=== PATIENT | female | born 1940 | race Caucasian/White ===

== ENCOUNTER → 2016-06-08 | Outpatient (CLI) | payer MEDICARE, MEDICAID ==
[~2016-06-08] MED LIST: ALLO300T2 PO; ASPI-518 PO; CALC-696 PO; CLOP75TA33 PO; ERGO2000 PO; FURO40TA5 PO; LOSA50TA20 PO; MESA1.2T PO; PROP40TA7 PO; SERT50TA12 PO; SIMV20TA6 PO; TEMA15CA46 PO; VERA240C2 PO; [UNRECOGNIZED DRUG - REMARK]
== END | disposition home or self-care (01) ==
LOC: RAD 10:08
PROVIDERS: ATTEND Internal Medicine Nephrology
DX: M17.11 Unilateral primary osteoarthritis, right knee (principal)
CPT/HCPCS: 73562